=== PATIENT | female | born 1990 | race Caucasian/White ===

== ENCOUNTER 2019-05-14 14:08 | Emergency (ER) | payer OTHER ==
[~2019-05-14] VITALS: Ht 177.8 cm; Wt 63.5 kg
[2019-05-14 14:09] VITALS: BP 123/85
--- NOTE | 2019-05-14 14:30 | NUR ---
PT BIBA TO ED FOR EVALUATION OF ETOH. PT AAO X 3, GCS 15, ABLE TO SPEAK WITH FULL COMPLETE SENTENCES. RESPIRATIONS EVEN AND UNLABORED, BL LUNG CLEAR. SKIN WARM/PINK/DRY, +PMSC. ABDOMEN SOFT, NON DISTENDED, ACTIVE BOWEL SOUND X4. IRRIGATOR HEAD ST HR 120'S, BP WNL. MADE AWARE OF PT STATUS, VERBALIZED UNDERSTANDING. WILL CONTINUE TO MONITOR
--- NOTE | 2019-05-14 15:16 | NUR ---
PT PLACED IN BED 12 BY W/C.
--- NOTE | 2019-05-14 15:27 | NUR ---
Dr. Cedeno is evaluating the patient at bedside.
[2019-05-14] MEDS ORDERED: NACL 0.9% 1,000 ML IV ONE (15:35)
[2019-05-14] MEDS ORDERED: ONDANSETRON 4 MG/2 ML VIAL IVP ONE (15:35)
[2019-05-14] MEDS ORDERED: KETOROLAC 30 MG/ML VIAL IM/IVP ONE (15:35)
[2019-05-14 16:59] VITALS: BP 103/71
--- NOTE | 2019-05-14 16:59 | NUR ---
Patient discharged with v/s stable. Written and verbal after care instructions given and explained. Patient alert, oriented and verbalized understanding of instructions. Ambulatory with steady gait. All questions addressed prior to discharge. ID band removed. Patient advised to follow up with PMD. Rx of ZOFRAN ODT 4 MG given. Patient educated on indication of medication including possible reaction and side effects. Opportunity to ask questions provided and answered.
== END 2019-05-14 16:59 | disposition home or self-care (01) ==
LOC: MED 14:08
DX: F10.10 Alcohol abuse, uncomplicated (principal); Z98.890 Other specified postprocedural states
CPT/HCPCS: 81025; 96374; 96375; 99283; J1885; J2405; J7030